=== PATIENT | male | born 1990 | race Caucasian/White ===

== ENCOUNTER 2017-02-06 14:43 | Emergency (ER) | payer OTHER ==
[2017-02-06 16:03] VITALS: BP 137/50
== END 2017-02-06 16:03 | disposition home or self-care (01) ==
LOC: ED 14:43
DX: S41.112A Laceration without foreign body of left upper arm, initial encounter (principal); F12.90 Cannabis use, unspecified, uncomplicated; F17.200 Nicotine dependence, unspecified, uncomplicated; Z71.6 Tobacco abuse counseling; W45.8XXA Other foreign body or object entering through skin, initial encounter; Y93.89 Activity, other specified; Y99.8 Other external cause status; Y92.89 Other specified places as the place of occurrence of the external cause
CPT/HCPCS: 99406; J2001

== ENCOUNTER 2017-07-22 10:09 | Emergency (ER) | payer OTHER ==
[~2017-07-22] VITALS: Ht 177.8 cm; Wt 98.2 kg
[2017-07-22 12:01] LABS: PLATELET COUNT 227 x10^3mcL (130-400)
[2017-07-22 12:08] LABS: BASOPHIL % 0.5 % (0-2); RED CELL DISTRIBUTION WIDTH 13.3 % (11.5-14.5)
[2017-07-22 12:08] LABS: UA SPECIFIC GRAVITY 1.025 (1.005-1.035); microscopic required? YES; urine erythrocyte TRACE (NEGATIVE)
[2017-07-22 12:09] LABS: CALCIUM 9.2 mg/dL (8.5-10.1); CARBON DIOXIDE 27.1 mmol/L (21-32); CHLORIDE SERUM 102 mmol/L (98-107); CREATININE SERUM 0.9 mg/dL (0.7-1.3); GFR1 > 60 mL/min; GLUCOSE SERUM 101 mg/dL (74-106); POTASSIUM SERUM 4.2 mmol/L (3.5-5.1); SODIUM SERUM 140 mmol/L (136-145)
[2017-07-22 12:16] LABS: ALBUMIN 3.9 g/dL (3.4-5.0); ALKALINE PHOSPHATASE 67 U/L (46-116); ALT/SGPT 66 U/L (16-63); AMYLASE 57 U/L (25-115); AST/SGOT 51 U/L (15-37); BILIRUBIN TOTAL 1.7 mg/dL (0.20-1.00); LIPASE 203 IU/L (73-393); TOTAL PROTEIN, SERUM 7.8 g/dL (6.4-8.2)
[2017-07-22 15:00] VITALS: BP 148/87
== END 2017-07-22 15:00 | disposition home or self-care (01) ==
LOC: ED 10:09
PROVIDERS: Emergency Medicine Emergency Medical Services
DX: K29.20 Alcoholic gastritis without bleeding (principal)
CPT/HCPCS: 36415